=== PATIENT | female | born 1955 | race Caucasian/White ===

== ENCOUNTER 2018-02-04 19:14 | Emergency (ER) | END 2018-02-04 20:40 | disposition left against medical advice (07) ==

== ENCOUNTER 2018-03-08 19:00 | Emergency (ER) | END 2018-03-08 21:33 | disposition left against medical advice (07) ==

== ENCOUNTER 2018-04-24 16:50 | Emergency (ER) | END 2018-04-24 22:27 | disposition home or self-care (01) ==